=== PATIENT | female | born 1990 | race Caucasian/White ===

== ENCOUNTER → 2022-03-11 | Outpatient (CLI) | payer OTHER, SELFPAY ==
--- NOTE | 2022-03-11 16:45 | MRI_ITS ---
STUDY: MRI TEMPOROMANDIBULAR JOINTS REASON FOR EXAM: Female, 32 years old. Severe left jaw pain and limited ROM TECHNIQUE: Standardized fat and water weighted pulse sequences were obtained in all 3 orthogonal planes. COMPARISON: None. FINDINGS: Left TMJ: There is mild anterior dislocation of the left mandibular condyle from the mandibular fossa, in addition to intrasubstance degeneration and tearing of the central aspect of the left TMJ disc. With the open-mouth position the posterior aspect of the torn left articular disc is trapped between the mandibular head and the overlying eminence. Normal left mandibular condyle. There is meniscal degeneration with intrasubstance signal alteration and diffuse attrition. There is anterior dislocation of the meniscus of the left temporomandibular joint in the closed mouth position. There is no demonstrated joint effusion. Right TMJ: In the closed-mouth position, the right mandibular condyle is normally positioned in the mandibular fossa. [place] right mandibular condyle. Normal meniscus. Normal relationship of the meniscus to the mandibular condyle. There is no demonstrated joint effusion. In the open mouth position, there is normal forward translation of the mandibular condyle which comes to rest under the articular eminence. The meniscus maintains its normal relationship with the mandibular condyle and articular eminence. MRI/TMJ/Bilat IMPRESSION: 1. There is mild anterior dislocation of the left mandibular condyle from the mandibular fossa, in addition to intrasubstance degeneration and tearing of the central aspect of the left TMJ disc. With the open-mouth position the posterior aspect of the torn left articular disc is trapped between the mandibular head and the overlying eminence. Electronically Signed: Arnel Fontaine MD at 15:54 EDT ,
== END | disposition home or self-care (01) ==
LOC: MRI 16:25
PROVIDERS: Visit Provider Dentist Oral and Maxillofacial Surgery
DX: M26.602 Left temporomandibular joint disorder, unspecified (principal)
CPT/HCPCS: 70336